=== PATIENT | female | born 1970 | race Two or more races ===

== ENCOUNTER 2022-03-16 02:59 | Emergency (ER) | payer MEDICAID ==
[~2022-03-16] VITALS: Ht 165.1 cm; Wt 82.0 kg
[2022-03-16 03:05] VITALS: BP 140/88
== END 2022-03-16 04:00 | disposition home or self-care (01) ==
LOC: ER 03:40
DX: C34.90 Malignant neoplasm of unspecified part of unspecified bronchus or lung (principal)
CPT/HCPCS: 99283